=== PATIENT | female | born 1970 | race Caucasian/White ===

== ENCOUNTER 2019-08-19 01:43 | Emergency (ER) | payer OTHER, SELFPAY ==
[2019-08-19 01:55] VITALS: BP 139/93; PULSE 80; RESP 16; TEMP 36.8; O2SAT 98; BMI 40.4
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
== END 2019-08-19 03:57 | disposition home or self-care (01) ==
PROVIDERS: Emergency Provider Emergency Medicine; Family Provider Family Medicine
DX: S29.012A Strain of muscle and tendon of back wall of thorax, initial encounter (principal); S39.012A Strain of muscle, fascia and tendon of lower back, initial encounter; V49.9XXA Car occupant (driver) (passenger) injured in unspecified traffic accident, initial encounter; F17.210 Nicotine dependence, cigarettes, uncomplicated
CPT/HCPCS: 12345; 72128; 72131; 99282

== ENCOUNTER 2020-04-18 03:27 | Emergency (ER) | payer OTHER, SELFPAY ==
[2020-04-18 03:35] VITALS: BP 125/75; PULSE 73; RESP 18; TEMP 36.4; O2SAT 100; BMI 39.6
--- NOTE | 2020-04-18 03:43 | XR_ITS ---
WS: [id number] LEFT KNEE: 3 VIEW(S) TECHNIQUE: AP, oblique(s) and lateral. HISTORY: fall COMPARISON: None available. No fracture or dislocation. Severe tricompartment osteoarthritis. Lateral subluxation of the tibial plateau. Hypertrophic osteoph ytes and bone formation with subchondral cystic changes along the joint line. No joint effusion. No soft tissue abnormality. XR/XR knee LT 3V* [id number] IMPRESSION: 1. No fracture identified. 2. Severe tricompartment osteoarthritis.
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
[2020-04-18 03:44] VITALS: BP 125/75; PULSE 74; RESP 18; O2SAT 100
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
[2020-04-18] MEDS: ondansetron 4 MG Tablet PO (04:05)
[2020-04-18 04:06] VITALS: RESP 16; O2SAT 97
[2020-04-18] MEDS: HYDROmorphone 1 mg/mL INJ 1 mL 2 MG IM (04:06)
[2020-04-18 04:24] VITALS: BP 151/72; PULSE 99; RESP 17; O2SAT 98
== END 2020-04-18 04:26 | disposition home or self-care (01) ==
PROVIDERS: Emergency Provider Emergency Medicine
DX: S82.832A Other fracture of upper and lower end of left fibula, initial encounter for closed fracture (principal); F17.210 Nicotine dependence, cigarettes, uncomplicated; X50.9XXA Other and unspecified overexertion or strenuous movements or postures, initial encounter
CPT/HCPCS: 12345; 29515; 73562; 73600; 73610; 96372; 99281; 99283; J1170; Q0162

== ENCOUNTER 2020-04-18 17:09 | Outpatient (CLI) | payer OTHER, SELFPAY | END 2020-04-18 17:10 | disposition home or self-care (01) | LOC: SPT 17:10 | PROVIDERS: PCP Family Medicine; Visit Provider Podiatrist Foot & Ankle Surgery | DX: Z46.89 Encounter for fitting and adjustment of other specified devices (principal); S82.832S Other fracture of upper and lower end of left fibula, sequela; X58.XXXS Exposure to other specified factors, sequela | CPT/HCPCS: 97760; L4361 ==

== ENCOUNTER → 2020-05-02 15:36 | Outpatient (BNVA) | payer OTHER, SELFPAY | PROVIDERS: PCP Family Medicine; Visit Provider Podiatrist Foot & Ankle Surgery | DX: S82.832D Other fracture of upper and lower end of left fibula, subsequent encounter for closed fracture with routine healing (principal); X58.XXXD Exposure to other specified factors, subsequent encounter | CPT/HCPCS: 73610 ==

== ENCOUNTER → 2020-05-18 07:56 | Outpatient (BNVA) | payer OTHER, SELFPAY | PROVIDERS: PCP Family Medicine; Visit Provider Podiatrist Foot & Ankle Surgery | DX: S99.929A Unspecified injury of unspecified foot, initial encounter (principal); S82.832A Other fracture of upper and lower end of left fibula, initial encounter for closed fracture; S82.832D Other fracture of upper and lower end of left fibula, subsequent encounter for closed fracture with routine healing; X58.XXXD Exposure to other specified factors, subsequent encounter | CPT/HCPCS: 73610 ==

== ENCOUNTER → 2020-06-01 08:34 | Outpatient (BNVA) | payer OTHER, SELFPAY | PROVIDERS: PCP Family Medicine; Visit Provider Podiatrist Foot & Ankle Surgery | DX: S82.832A Other fracture of upper and lower end of left fibula, initial encounter for closed fracture; S82.832D Other fracture of upper and lower end of left fibula, subsequent encounter for closed fracture with routine healing; X58.XXXA Exposure to other specified factors, initial encounter | CPT/HCPCS: 73610 ==

== ENCOUNTER 2020-06-15 14:05 | Outpatient (CLI) | payer OTHER, SELFPAY | END 2020-06-15 14:06 | disposition home or self-care (01) | LOC: SPT 14:06 | PROVIDERS: PCP Family Medicine; Visit Provider Podiatrist Foot & Ankle Surgery | DX: Z46.89 Encounter for fitting and adjustment of other specified devices (principal); S82.832D Other fracture of upper and lower end of left fibula, subsequent encounter for closed fracture with routine healing; X58.XXXD Exposure to other specified factors, subsequent encounter | CPT/HCPCS: 97760; L1902 ==

== ENCOUNTER 2020-06-15 14:11 | Outpatient (CLI) | payer OTHER, SELFPAY ==
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
== END 2020-06-15 14:12 | disposition home or self-care (01) ==
LOC: RAD 14:12
PROVIDERS: PCP Family Medicine; Visit Provider Podiatrist Foot & Ankle Surgery
DX: S82.832A Other fracture of upper and lower end of left fibula, initial encounter for closed fracture (principal); X58.XXXA Exposure to other specified factors, initial encounter
CPT/HCPCS: 73610

== ENCOUNTER → 2020-06-29 15:42 | Outpatient (BNVA) | payer OTHER, SELFPAY | PROVIDERS: PCP Family Medicine; Visit Provider Podiatrist Foot & Ankle Surgery | DX: S99.929A Unspecified injury of unspecified foot, initial encounter (principal); S82.832A Other fracture of upper and lower end of left fibula, initial encounter for closed fracture; S82.832D Other fracture of upper and lower end of left fibula, subsequent encounter for closed fracture with routine healing; X58.XXXA Exposure to other specified factors, initial encounter | CPT/HCPCS: 73610 ==

== ENCOUNTER → 2021-03-15 11:05 | Outpatient (BNVA) | payer OTHER, SELFPAY | PROVIDERS: PCP Family Medicine; Visit Provider Nurse Practitioner Family | DX: Z20.822 Contact with and (suspected) exposure to COVID-19 (principal) | CPT/HCPCS: 87426; 87635 ==

== ENCOUNTER → 2022-06-08 14:56 | Outpatient (BNVA) | payer OTHER, SELFPAY | PROVIDERS: PCP Family Medicine; Visit Provider Family Medicine | DX: Z13.6 Encounter for screening for cardiovascular disorders (principal) | CPT/HCPCS: 80061; 82947; 83036 ==

== ENCOUNTER 2023-08-05 09:40 | Outpatient (CLI) | payer OTHER, SELFPAY ==
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
== END 2023-08-05 09:41 | disposition home or self-care (01) ==
LOC: RAD 09:41
PROVIDERS: PCP Family Medicine; Visit Provider Family Medicine
DX: N63.20 Unspecified lump in the left breast, unspecified quadrant (principal); N63.10 Unspecified lump in the right breast, unspecified quadrant; R92.30 Dense breasts, unspecified
CPT/HCPCS: 76642; 77062; G0279

== ENCOUNTER → 2024-06-25 11:44 | Outpatient (BNVA) | payer OTHER, SELFPAY | PROVIDERS: PCP Family Medicine; Visit Provider Family Medicine | DX: Z13.6 Encounter for screening for cardiovascular disorders (principal) | CPT/HCPCS: 80061; 82947; 83036 ==

== ENCOUNTER → 2025-01-07 07:21 | Outpatient (BNVA) | payer SELFPAY | PROVIDERS: PCP Family Medicine; Visit Provider Family Medicine | DX: R53.83 Other fatigue (principal); R63.5 Abnormal weight gain | CPT/HCPCS: 80053; 80061; 82533; 83036; 84443; 85025; 86140 ==